=== PATIENT | male | born 1975 ===

== ENCOUNTER 2018-05-10 13:18 | Emergency (ER) | payer OTHER ==
[2018-05-10 13:29] VITALS: BP 147/90; PULSE 89; RESP 16; TEMP 98.5; O2SAT 97
--- NOTE | 2018-05-10 13:48 | ED PDOC ---
Upper Extremity Pain/Injury Time Seen by Provider: 05/10/18 13:35 Chief Complaint (Nursing): Upper Extremity Problem/Injury Chief Complaint (Provider): Left Hand / Wrist Injury History Per: Patient History/Exam Limitations: no limitations Onset/Duration Of Symptoms: Days (x1) Current Symptoms Are (Timing): Still Present Additional Complaint(s): 43 year old male presents to the ED for evaluation of left wrist and hand swelling with minimal pain. Patient states that yesterday while playing soccer, he fell and landed on cement putting all his weight on his left hand and wrist. Initially, he reports not feeling much pain and going home; however, upon waking up today his hand and wrist were swollen and slightly painful. Otherwise, denies taking any medication prior to arrival, fever, chills, body aches, and other injury. PMD: none provided Past Medical History Reviewed: Historical Data, Nursing Documentation, Vital Signs Vital Signs: Last Vital Signs Temp 98.5 F 05/10/18 13:24 Pulse 89 05/10/18 13:24 Resp 16 05/10/18 13:24 BP 147/90 05/10/18 13:24 Pulse Ox 97 05/10/18 13:24 - Medical History PMH: No Chronic Diseases - Surgical History Other surgeries: right retinal surgery - Family History Family History: States: Unknown Family Hx - Social History Current smoker - smoking cessation education provided: No Alcohol: Social Drugs: Denies - Home Medications Home Medications: Ambulatory Orders Medication Instructions Recorded Ibuprofen [Motrin Tab] 800 mg PO Q8H PRN #21 tab 05/10/18 oxyCODONE/Acetaminophen [Percocet 1 ea PO Q6H PRN #12 tab 05/10/18 5/325 mg Tab] - Allergies Allergies/Adverse Reactions: Allergies Allergy/AdvReac Type Severity Reaction Status Date / Time No Known Allergies Allergy Verified 05/10/18 13:26 Review of Systems ROS Statement: Except As Marked, All Systems Reviewed And Found Negative Constitutional: Negative for: Fever, Chills, Other (body aches) Musculoskeletal: Positive for: Hand Pain (left hand and wrist swelling with minimal pain) Physical Exam - Reviewed Nursing Documentation Reviewed: Yes Vital Signs Reviewed: Yes - Physical Exam Appears: Positive for: No Acute Distress Head Exam: Positive for: ATRAUMATIC, NORMOCEPHALIC Skin: Negative for: Rash Eye Exam: Positive for: Normal appearance Cardiovascular/Chest: Positive for: Regular Rate, Rhythm Respiratory: Positive for: Normal Breath Sounds. Negative for: Respiratory Distress Pulses-Radial (L): 2+ Pulses-Radial (R): 2+ Extremity: Positive for: Capillary Refill (less than 2 seconds), Swelling (and erythema with some areas of ecchymosis noted extending from posterior aspect of left hand; erythema noted from dorsal aspect of left hand over wrist and about three quarters up the forearm - area is warmer to touch than right hand/wrist). Negative for: Normal ROM (limited ROM to left wrist and hand due more so to swelling than pain; good ROM of all digits of left hand), Other (break in skin integrity of left upper extremity) Neurological/Psych: Positive for: Awake, Alert, Oriented (x3) - Laboratory Results Result Diagrams: 05/10/18 13:43 05/10/18 13:43 - ECG O2 Sat by Pulse Oximetry: 97 (RA) Pulse Ox Interpretation: Normal Medical Decision Making Medical Decision Making: Time: 1337 Initial Impression: left hand / wrist injury, r/o fracture Initial Plan: --BMP --CBC with differential --ESR --Left hand XR --Left wrist XR --Ibuprofen 600mg PO --Reevaluation 1410 Upon review of XR, patient has a displaced distal radius fracture. Giselle ELDER was called and is agreeable to seeing patient in ED. 1430 JAEL Yu at bedside. 1457 Official XR reads: Wrist FINDINGS: BONES: Comminuted intra-articular displaced distal radial fracture. There is dorsal displacement of the distal fragment. There is mild dorsal angulation of the distal fragment with the articulating carpal bones. The ulnar styloid process is intact. There is no additional fracture identified. JOINTS: Normal. No dislocation. SOFT TISSUES: Normal. OTHER FINDINGS: None. IMPRESSION: Comminuted displaced intra-articular distal radial fracture Hand IMPRESSION: Distal radial fracture. Otherwise unremakrable. 1610 Patient reports improvement in pain at this time and had splint applied by giselle Yu. Neurovascular intact after splint placement. Patient educated on further care and follow up in Faroese by me, and he verbalized understanding. He is to follow up with ortho on 05/17 and advised in the mean time to not lift anything with his left arm and keep it elevated. Scripts for Percocet and Motrin given for pain, and extensive conversation on opiate addiction / abuse had, with advice on using opiates sparingly. Patient verbalized agreement and understanding, stable for discharge with return parameters discussed. Scribe Attestation: Documented by Isaura Casey, acting as a scribe for Elena Salcedo NP. Provider Scribe Attestation: All medical record entries made by the Scribe were at my direction and personally dictated by me. I have reviewed the chart and agree that the record accurately reflects my personal performance of the history, physical exam, medical decision making, and the department course for this patient. I have also personally directed, reviewed, and agree with the discharge instructions and disposition. Disposition - Clinical Impression Clinical Impression: Distal radius fracture, left - Patient ED Disposition Is Patient to be Admitted: No Doctor Will See Patient In The: Office Counseled Patient/Family Regarding: Diagnosis, Need For Followup, Rx Given - Disposition Referrals: [facility] [[facility]] Disposition: Routine/Home Disposition Time: 16:15 Condition: GOOD Additional Instructions: Lltyrar harojas caprice para katya el [facility], in the clinica de [facility] en [facility]. Prescriptions: Ibuprofen [Motrin Tab] 800 mg PO Q8H PRN #21 tab PRN Reason: Pain, Moderate (4-7) oxyCODONE/Acetaminophen [Percocet 5/325 mg Tab] 1 ea PO Q6H PRN #12 tab PRN Reason: Pain, Severe (8-10) Instructions: Radius Fracture (DC) Print Language: YI - POA Present On Arrival: None
[2018-05-10 14:06] LABS: BASO % 0.3 % (0.0-2.0); EOS % 0.1 % (0.0-4.0); HEMOGLOBIN 14.3 g/dL (12.0-18.0); LYMPH # 1.4 K/uL (1.0-4.3); LYMPH % 19.3 % (20.0-40.0); MEAN CELL VOLUME 88.4 fl (80.0-94.0); MEAN CORPUSCULAR HEMOGLOBIN 29.6 pg (27.0-31.0); MEAN CORPUSCULAR HGB CONC 33.5 g/dL (33.0-37.0); MEAN PLATELET VOLUME 8.9 fl (7.2-11.7); MONO # 1.2 K/uL (0.0-0.8); MONO % 17.3 % (0.0-10.0); NEUT # 4.5 K/uL (1.8-7.0); NRBC % 0.1 % (0.0-0.0); RBC 4.83 Mil/uL (4.40-5.90); RED CELL DISTRIBUTION WIDTH 13.8 % (11.5-14.5); WHITE BLOOD COUNT 7.2 K/uL (4.8-10.8)
[2018-05-10 14:12] LABS: BLOOD UREA NITROGEN 10 mg/dl (9-20); CALCIUM 9.4 mg/dL (8.4-10.2); GFR NON-AFRICAN AMERICAN > 60
[2018-05-10] MEDS ORDERED: Lidocaine 1% Inj (20ml) ONE (14:52)
--- NOTE | 2018-05-10 15:01 | RAD ---
Date of service: 05/10/2018 PROCEDURE: Left Wrist Radiographs. HISTORY: swelling injury COMPARISON: None. FINDINGS: BONES: Comminuted intra-articular displaced distal radial fracture. There is dorsal displacement of the distal fragment. There is mild dorsal angulation of the distal fragment with the articulating carpal bones. The ulnar styloid process is intact. There is no additional fracture identified. JOINTS: Normal. No dislocation. SOFT TISSUES: Normal. OTHER FINDINGS: None. IMPRESSION: Comminuted displaced intra-articular distal radial fracture
--- NOTE | 2018-05-10 15:02 | RAD ---
PROCEDURE: Left Hand Radiographs. HISTORY: injury pain/swelling COMPARISON: None. TECHNIQUE: 3 views obtained. FINDINGS: BONES: Comminuted intra-articular displaced distal radial fracture. No other fracture identified. JOINTS: Normal. No osteoarthritic changes. SOFT TISSUES: Normal. OTHER FINDINGS: None. IMPRESSION: Distal radial fracture. Otherwise unremarkable.
--- NOTE | 2018-05-10 16:26 | CP.PCM.CON ---
History of Present Illness - History of Present Illness History of Present Illness: Orthopedic consult: Dr. Viola MORAN #[id number] used for kosovan translation Patient is a 43 y/o RHD male who presents to [facility] ER with c/o L wrist pain. He reports falling onto outstretched left hand while playing soccer on a playing field around 3PM yesterday. He experienced moderate left wrist but was able to go home. That night he developed significant swelling of his left wrist and severe pain the this morning, prompting to come to the ER. The pain is diffuse about the left wrist, dull and intermittent. The pain is worse with movement and alleviates with inactivity. The pain is associated with swelling and deformity. He denies any radiation of pain/numbness/tingling. He also denies CP/SOB/N/V/D/fever/dysuria/melena. PMH: denies PSH: R eye retina surgery meds: denies allergy NKDA SH: denies tobacco/drug use, ETOH socially, works in [employer] Review of Systems - Review of Systems All systems: reviewed and no additional remarkable complaints except Review of Systems: as per HPI Past Patient History - Infectious Disease Hx of Infectious Diseases: None - Past Medical History & Family History Past Family History: Reviewed and not pertinent - Past Social History Alcohol: Social Drugs: Denies - PSYCHIATRIC Hx Substance Use: No - SURGICAL HISTORY Hx Surgeries: No Meds Home Medications: Home Medication List Medication Instructions Recorded Confirmed Type Ibuprofen [Motrin Tab] 800 mg PO Q8H PRN #21 tab 05/10/18 Rx oxyCODONE/Acetaminophen [Percocet 1 ea PO Q6H PRN #12 tab 05/10/18 Rx 5/325 mg Tab] Allergies/Adverse Reactions: Allergies Allergy/AdvReac Type Severity Reaction Status Date / Time No Known Allergies Allergy Verified 05/10/18 13:26 Physical Exam - Constitutional Appears: Well, No Acute Distress - Head Exam Head Exam: ATRAUMATIC, NORMOCEPHALIC - Eye Exam Eye Exam: EOMI, Normal appearance - Respiratory Exam Respiratory Exam: NORMAL BREATHING PATTERN - Extremities Exam Additional comments: LUE: +dinner fork deformity mild tenderness diffuse, no guarding moderate swelling and ecchymosis dorsally/radially sensation intact MN/UN/RN motor intact MN/UN/RN radial pulse intact, 2 sec cap refill all fingers RUE: no deformity no tenderness, no guarding no swelling/ecchymosis sensation intact MN/UN/RN motor intact MN/UN/RN radial pulse intact, 2 sec cap refill all fingers - Neurological Exam Neurological exam: Alert, CN II-XII Intact, Oriented x3 - Psychiatric Exam Psychiatric exam: Normal Affect, Normal Mood - Skin Skin Exam: Normal Color, Warm Results - Vital Signs Recent Vital Signs: Last Vital Signs Temp 98.5 F 05/10/18 13:24 Pulse 89 05/10/18 13:24 Resp 16 05/10/18 13:24 BP 147/90 05/10/18 13:24 Pulse Ox 97 05/10/18 15:38 - Labs Result Diagrams: 05/10/18 13:43 05/10/18 13:43 Labs: Laboratory Results - last 24 hr 05/10/18 05/10/18 13:43 13:43 WBC 7.2 RBC 4.83 Hgb 14.3 Hct 42.7 MCV 88.4 MCH 29.6 MCHC 33.5 RDW 13.8 Plt Count 208 MPV 8.9 Neut % (Auto) 63.0 Lymph % (Auto) 19.3 L Emanuel % (Auto) 17.3 H Eos % (Auto) 0.1 Baso % (Auto) 0.3 Neut # (Auto) 4.5 Lymph # (Auto) 1.4 Emanuel # (Auto) 1.2 H Eos # (Auto) 0.0 Baso # (Auto) 0.0 ESR 15 Sodium 137 Potassium 3.4 L Chloride 101 Carbon Dioxide 25 Anion Gap 14 BUN 10 Creatinine 0.6 L Est GFR ( Amer) > 60 Est GFR (Non-Af Amer) > 60 Random Glucose 126 H Calcium 9.4 - Impressions Impression: Accession No. : [id number] Patient Name / ID : JAY CLARKE / [id number] Exam Date : 05/10/2018 13:34:04 ( Approved ) Study Comment : Sex / Age : M / 43Y Creator : Bora Ybarra MD Dictator : Bora Ybarra MD Public Accountant : Pathologist : Bora Ybarra MD Approver2 : Report Date : 05/10/2018 14:57:32 My Comment : Date of service: 05/10/2018 PROCEDURE: Left Wrist Radiographs. HISTORY: swelling injury COMPARISON: None. FINDINGS: BONES: Comminuted intra-articular displaced distal radial fracture. There is dorsal displacement of the distal fragment. There is mild dorsal angulation of the distal fragment with the articulating carpal bones. The ulnar styloid process is intact. There is no additional fracture identified. JOINTS: Normal. No dislocation. SOFT TISSUES: Normal. OTHER FINDINGS: None. IMPRESSION: Comminuted displaced intra-articular distal radial fracture Assessment & Plan (1) Fracture of left distal radius Assessment and Plan: Patient's written consent was obtained for left wrist closed reduction with hematoma block and sugar tong splint application Post reduction Xrays show acceptable reduction and alignment of fracture Patient tolerated procedure well and was NV intact -No surgical intervention at this time -Patient will remain in sugar tong splint, NWB and was emphasized strict elevation of the LUE -He will follow up in the [facility] orthopedic clinic next WednesdayMay 17. -pain medications as per ER -above was d/w Dr. Rod in agreement Status: Acute - Date & Time Date: 05/10/18 Time: 15:00 Procedures - Time-Out Type of Procedure: Left wrist fracture closed reduction, long arm splint application Site of Procedure: Left wrist Correct Patient: Yes Correct Procedure: Yes Correct Site Marked: Yes X-Ray Marked: Yes Medication Recon: Yes PA/Tech: Gigi Cohen PA-C - Splinting Location: Left wrist Hand-Made Type: orthoglass Splint: sugar-tong Pre-Proc Neuro Vasc Exam: normal Post-Proc Neuro Vasc Exam: normal
--- NOTE | 2018-05-10 17:05 | RAD ---
Date of service: 05/10/2018 PROCEDURE: Left Wrist Radiographs. HISTORY: post reduction COMPARISON: Pre reduction radiographs. May 10, 2018 TECHNIQUE: 4 views obtained. FINDINGS: BONES: Comminuted intra-articular fracture distal left radius. Satisfactory, anatomic alignment of major fracture fragments. JOINTS: Normal. No dislocation. SOFT TISSUES: Normal. OTHER FINDINGS: None. IMPRESSION: Satisfactory postreduction radiographs.
== END 2018-05-10 16:30 | disposition home or self-care (01) ==
LOC: H.ER 13:18
DX: S52.592A Other fractures of lower end of left radius, initial encounter for closed fracture (principal); W19.XXXA Unspecified fall, initial encounter; Y93.66 Activity, soccer
CPT/HCPCS: 25660; 29125; 73110; 73130; 80048; 85025; 85651; 96374; 99283; J2270